=== PATIENT | female | born 1995 | race Caucasian/White ===

== ENCOUNTER → 2017-12-29 | Outpatient (CLI) | payer BC ==
[~2017-12-29] VITALS: Ht 160 cm; Wt 77.7 kg
[~2017-12-29] MED LIST: TYLENOL 325MG325 MG PO; ZOLOFT25 M1 PO
[2017-12-29 19:00] VITALS: BP 118/87
[2017-12-29 20:13] VITALS: BP 126/85
== END ==
LOC: AMSURD 18:31
DX: N93.9 Abnormal uterine and vaginal bleeding, unspecified (principal)
CPT/HCPCS: J7030